=== PATIENT | female | born 1945 | race Caucasian/White ===

== ENCOUNTER 2017-11-07 13:31 | Outpatient (CLI) | payer MEDICARE, OTHER | END 2017-11-07 13:32 | disposition home or self-care (01) | LOC: BICMAMMO 13:31 | PROVIDERS: ATTEND Obstetrics & Gynecology | DX: Z12.31 Encounter for screening mammogram for malignant neoplasm of breast (principal); Z80.3 Family history of malignant neoplasm of breast | CPT/HCPCS: 77063; 77067 ==

== ENCOUNTER 2018-11-10 11:51 | Outpatient (CLI) | payer MEDICARE, OTHER ==
--- NOTE | 2018-11-10 14:04 | MMO ---
Bilateral MAMMO Bilat Screen [facility]. CLINICAL HISTORY: Patient is 73 years old and is seen for screening. The patient has the following family history of breast cancer: maternal grandmother; maternal aunt and 2 cousin females. The patient has no personal history of cancer. VIEWS: The views performed were: bilateral craniocaudal with tomosynthesis and bilateral mediolateral oblique with tomosynthesis. FILMS COMPARED: The present examination has been compared to prior imaging studies performed at [facility] on 10/20/2014, 10/31/2015, 10/31/2016 and 11/07/2017. MAMMOGRAM FINDINGS: There are stable benign appearing calcifications seen in both breasts. There are no suspicious masses, suspicious calcifications, or new areas of architectural distortion. IMPRESSION: THERE IS NO MAMMOGRAPHIC EVIDENCE OF MALIGNANCY. A ROUTINE FOLLOW-UP MAMMOGRAM IN 1 YEAR IS RECOMMENDED. THE RESULTS OF THIS EXAM WERE SENT TO THE PATIENT. ACR BI-RADS Category 2 - Benign finding MAMMOGRAPHY NOTE: 1. A negative mammogram report should not delay a biopsy if a dominant of clinically suspicious mass is present. 2. Approximately 10% to 15% of breast cancers are not detected by mammography. 3. Adenosis and dense breasts may obscure an underlying neoplasm.
== END 2018-11-10 11:52 | disposition home or self-care (01) ==
LOC: BICMAMMO 11:51
PROVIDERS: ATTEND Obstetrics & Gynecology
DX: Z12.31 Encounter for screening mammogram for malignant neoplasm of breast (principal); Z80.3 Family history of malignant neoplasm of breast
CPT/HCPCS: 77063; 77067

== ENCOUNTER 2019-01-21 14:37 | Outpatient (CLI) | payer MEDICARE, OTHER ==
--- NOTE | 2019-01-21 15:09 | RAD ---
PA AND LATERAL VIEWS CHEST: Date: 01/21/19 HISTORY: Cough. FINDINGS: Heart size normal. Lungs are expanded without focal areas of consolidation, pneumothoraces, or pleura l effusions. No acute osseous abnormalities seen. IMPRESSION: No radiographic evidence of acute cardiopulmonary process. POS: C
== END 2019-01-21 14:38 | disposition home or self-care (01) ==
LOC: BICRAD 14:37
PROVIDERS: ATTEND Internal Medicine
DX: R05 Cough (principal)
CPT/HCPCS: 71046

== ENCOUNTER 2019-06-11 17:14 | Outpatient (CLI) | payer MEDICARE, OTHER ==
--- NOTE | 2019-06-11 17:37 | RAD ---
Exam:2 views left knee HISTORY: Pain, x3 weeks COMPARISON: None FINDINGS: No joint effusion. No fracture. No malalignment. Preserved joint spaces. IMPRESSION: Unremarkable left knee to the
== END 2019-06-11 17:15 | disposition home or self-care (01) ==
LOC: SCSRAD 17:14
PROVIDERS: ATTEND Physical Medicine & Rehabilitation
DX: M25.562 Pain in left knee (principal)

== ENCOUNTER 2019-07-20 14:03 | Outpatient (CLI) | payer MEDICARE, OTHER ==
--- NOTE | 2019-07-20 15:58 | MRI ---
EXAM: Left knee MRI without contrast: HISTORY: Left knee pain COMPARISON: None FINDINGS: Multiplanar, multisequence MRI examination of the knees performed. There is evidence for knee joint effusion with a moderate to large popliteal fossa cyst with some ext ension caudally along the medial aspect of the medial gastrocnemius. In addition there is some intramuscular abnormal fluid density within the upper medial gastrocnemius muscle extending approxima tely 5.4 cm craniocaudally into the muscle and approximately 0.6 x 1.9 cm in AP and transverse dimensions probably a second area of intramuscular fluid collection from the somewhat distended popli teal fossa cyst. There is some lateral compartment cartilage loss as well as some chondromalacia patella changes with near full-thickness fissure in the central patellar facet region. Medial meniscus: Complex tear of the medial meniscus from the posterior root into the posterior horn and posterior body junction region including a flap component. Lateral meniscus: Oblique tear of the posterior horn and posterior body junction region of the latera l meniscus evidence for small flap-type tear. Anterior cruciate ligament:Intact. Posterior cruciate ligament: Intact. Medial collateral ligament complex: Intact. Lateral collateral ligament complex: Intact. Quadriceps and patellar tendons: Intact. Extensor mechanism: Unremarkable. Small focus of subchondral marrow signal involving the medial tibial plateau probably a small focus o f stress related change. Several small subchondral cystic foci of the posterior medial femoral condyle. IMPRESSION: Medial and lateral meniscal tears. Joint effusion with prominent popliteal fossa cyst extending caudally with some fluid extension outsi de of the cyst along the posterior medial aspect of the medial gastrocnemius muscle as well as some intramuscular fluid density extending caudally from the knee joint level as well, evidence for prior rupture. Small focus of minimal subchondral marrow signal involving the proximal medial tibial subchondral reg ion probably a small focus of stress related change
== END 2019-07-20 14:04 | disposition home or self-care (01) ==
LOC: BICMRI 14:03
PROVIDERS: ATTEND Physical Medicine & Rehabilitation
DX: M25.562 Pain in left knee (principal); S83.242A Other tear of medial meniscus, current injury, left knee, initial encounter; S83.282A Other tear of lateral meniscus, current injury, left knee, initial encounter; R93.7 Abnormal findings on diagnostic imaging of other parts of musculoskeletal system; M71.22 Synovial cyst of popliteal space [Baker], left knee

== ENCOUNTER 2019-10-07 13:38 | Outpatient (CLI) | payer MEDICARE, OTHER ==
--- NOTE | 2019-10-07 14:58 | MRI ---
EXAM: MRI of right hip PROVIDED CLINICAL HISTORY: Pain COMPARISON: None FINDINGS: There is conspicuous asymmetric fluid signal intensity involving the undersurface fibers of the commo n hamstring tendon origin, compatible with partial thickness tearing. The left hip flexor, abductor and adductor tendons appear intact. The acetabular labrum and femoral-acetabular articular cartilage are suboptimally evaluated in the ab sence of joint distention but appear grossly normal. The amount of fluid within the right hip joint appears physiologic. No focal concerning regional marrow or muscular signal abnormality apparent. The courses of the regional major neurovascular structures appear unremarkable. IMPRESSION: Moderate grade partial thickness tearing involving the common hamstring tendon origin.
== END 2019-10-07 13:39 | disposition home or self-care (01) ==
LOC: BICMRI 13:38
PROVIDERS: ATTEND Orthopaedic Surgery Sports Medicine
DX: M25.551 Pain in right hip (principal); S76.011A Strain of muscle, fascia and tendon of right hip, initial encounter

== ENCOUNTER 2019-11-13 10:58 | Outpatient (CLI) | payer MEDICARE, OTHER ==
--- NOTE | 2019-11-13 11:39 | MMO ---
Bilateral MAMMO Bilat Screen [facility]. CLINICAL HISTORY: Patient is 74 years old and is seen for screening. The patient has the following family history of breast cancer: maternal grandmother; maternal aunt and 2 cousin females. The patient has no personal history of cancer. VIEWS: The views performed were: bilateral craniocaudal with tomosynthesis; bilateral mediolateral oblique with tomosynthesis; and bilateral exaggerated craniocaudal. FILMS COMPARED: The present examination has been compared to prior imaging studies performed at [facility] on 10/31/2015, 10/31/2016, 11/07/2017 and 11/10/2018. This study has been interpreted with the assistance of computer-aided detection. MAMMOGRAM FINDINGS: There are scattered fibroglandular densities. There are stable benign appearing calcifications seen in both breasts. There are no suspicious masses, suspicious calcifications, or new areas of architectural distortion. IMPRESSION: THERE IS NO MAMMOGRAPHIC EVIDENCE OF MALIGNANCY. A ROUTINE FOLLOW-UP MAMMOGRAM IN 1 YEAR IS RECOMMENDED. THE RESULTS OF THIS EXAM WERE SENT TO THE PATIENT. ACR BI-RADS Category 2 - Benign finding MAMMOGRAPHY NOTE: 1. A negative mammogram report should not delay a biopsy if a dominant of clinically suspicious mass is present. 2. Approximately 10% to 15% of breast cancers are not detected by mammography. 3. Adenosis and dense breasts may obscure an underlying neoplasm. Reported by: NOEMI CARRASCO MD Electonically Signed: [id number]
== END 2019-11-13 10:59 | disposition home or self-care (01) ==
LOC: BICMAMMO 10:58
PROVIDERS: ATTEND Obstetrics & Gynecology
DX: Z12.31 Encounter for screening mammogram for malignant neoplasm of breast (principal); Z80.3 Family history of malignant neoplasm of breast
CPT/HCPCS: 77063; 77067

== ENCOUNTER 2020-08-10 07:18 | Outpatient (CLI) | payer MEDICARE, OTHER ==
[2020-08-10] MEDS ORDERED: ADENOSINE 60 MG/20 ML VIAL ONE (08:38)
== END 2020-08-10 07:19 | disposition home or self-care (01) ==
LOC: NM 07:18
PROVIDERS: ATTEND Internal Medicine
DX: R07.9 Chest pain, unspecified (principal)
CPT/HCPCS: 78452; 93017; A9500; J0153

== ENCOUNTER 2020-11-14 10:57 | Outpatient (CLI) | payer MEDICARE, OTHER | END 2020-11-14 10:58 | disposition home or self-care (01) | LOC: BICMAMMO 10:57 | PROVIDERS: ATTEND Obstetrics & Gynecology | DX: Z12.31 Encounter for screening mammogram for malignant neoplasm of breast (principal); Z80.3 Family history of malignant neoplasm of breast | CPT/HCPCS: 77063; 77067 ==

== ENCOUNTER 2020-11-17 11:02 | Day surgery (SDC) | payer MEDICARE, OTHER | END 2020-11-17 14:08 | disposition home or self-care (01) | LOC: SDC 11:02 | PROVIDERS: ATTEND Internal Medicine Critical Care Medicine | PROC: 0BJQ3ZZ Inspection of Pleura, Percutaneous Approach (ICD-10-PCS; principal; 2020-11-17) | DX: J90 Pleural effusion, not elsewhere classified (principal); J94.2 Hemothorax | CPT/HCPCS: 32554; J1642 ==

== ENCOUNTER 2020-12-08 10:13 | Outpatient (CLI) | payer MEDICARE ==
[2020-12-08 12:04] LABS: Hemoglobin 12.8 g/dL (12.0-15.5); Mean Corpuscular HGB CONC 32.7 g/dL (32.0-36.0); Mean Corpuscular Hemoglobin 30.3 pg (27.0-33.0); Mean Corpuscular Volume 92.4 fl (81.6-98.3); Mean Platelet Volume 9.9 fl (7.4-10.4); Platelet Count 253 10x3/uL (150-450); RBC Distribution Width 13.2 % (11.5-14.5); Red Blood Cell (RBC) Count 4.23 10x6/uL (3.90-5.03); White Blood Cell (WBC) Count 6.9 10x3/uL (3.5-10.5)
[2020-12-08 12:27] LABS: Anion Gap 11 mmol/L (10-20); BUN (Urea Nitrogen) 14 mg/dL (9.8-20.1); Calc. Creatinine Clearance 0 mL/min (70-130); Calcium 10.6 mg/dL (7.8-10.44); Carbon Dioxide 27 mmol/L (23-31); Chloride 103 mmol/L (98-107); Glucose 83 mg/dL (83-110); Potassium 4.4 mmol/L (3.5-5.1); Sodium 137 mmol/L (136-145)
== END 2020-12-08 10:14 | disposition home or self-care (01) ==
LOC: LABBT 10:13
PROVIDERS: ATTEND Thoracic Surgery (Cardiothoracic Vascular Surgery)
DX: Z01.818 Encounter for other preprocedural examination (principal); J90 Pleural effusion, not elsewhere classified
CPT/HCPCS: 80048; 85027; 93005; 93010

== ENCOUNTER 2020-12-09 05:57 | Day surgery (SDC) | payer MEDICARE ==
[2020-12-08 14:38] VITALS: BMI 27.8
[2020-12-09] MEDS ORDERED: Bupivacaine PF 0.5% 30 ML VIAL ONE (06:36)
[2020-12-09] MEDS ORDERED: EPINEPHrine 1 MG/ML AMP ONE (06:36)
[2020-12-09] MEDS ORDERED: Fentanyl 100 MCG/2 ML VIAL ONE ×4 (06:52→11:38)
[2020-12-09] MEDS ORDERED: Glycopyrrolate 0.2 MG/ML 5 ML SYRINGE ONE (07:44)
[2020-12-09] MEDS ORDERED: Ondansetron PF 4 MG/2 ML Vial ONE (07:44)
[2020-12-09] MEDS ORDERED: Lidocaine 1% PF 5 ML VIAL ONE (07:44)
[2020-12-09] MEDS ORDERED: Dexamethasone 20 MG/5 ML VIAL ONE (07:44)
[2020-12-09] MEDS ORDERED: Rocuronium Bromide 10 MG/ML (10ML VIAL) ONE (07:44)
[2020-12-09] MEDS ORDERED: PROPOFOL 200 MG/20 ML VIAL ONE (07:44)
[2020-12-09 09:54] LABS: RBC Count-Automated (BF) 130 /cu.mm; WBC/Nucleated-Auto (BF) 330 uL
[2020-12-09 10:13] LABS: BF Color Yellow; Body Fluid Source Pleural Fluid; Clarity Hazy (Clear); Tube # EDTA
[2020-12-09 10:19] LABS: Cell Count Non Hematic 85 %; Eosinophils 1 %; Lymphocytes 14 %
[2020-12-09] MEDS ORDERED: Acetaminophen 325 MG TAB ONE (14:29)
[2020-12-09] MEDS ORDERED: Fentanyl 100 MCG/2 ML VIAL SLOW IVP PRN (15:46)
[2020-12-09] MEDS ORDERED: Zolpidem Tartrate 5 MG TAB PO PRN (15:46)
[2020-12-09] MEDS ORDERED: Ondansetron PF 4 MG/2 ML Vial IVP PRN (15:46)
[2020-12-09] MEDS ORDERED: HYDROcodone/Acetaminophen 5/325 mg Tablet PO PRN ×2 (15:46)
[2020-12-09] MEDS ORDERED: Acetaminophen 325 MG TAB PO PRN (15:46)
[2020-12-09] MEDS ORDERED: HYDROcodone/Acetaminophen 5/325 mg Tablet ONE (16:51)
[2020-12-09] MEDS ORDERED: Artificial Tear Sol 15 ML BOT EA EYE PRN (17:02)
[2020-12-09] MEDS ORDERED: guaiFENesin ER 600 MG TAB PO SCH (21:00)
[2020-12-10] MEDS ORDERED: Levothyroxine Sodium 88 MCG TAB PO SCH (06:00)
[2020-12-10] MEDS ORDERED: Loratadine 10 MG TAB PO SCH (09:00)
== END 2020-12-09 17:50 | disposition home or self-care (01) ==
LOC: SDC 05:57
PROVIDERS: ATTEND Thoracic Surgery (Cardiothoracic Vascular Surgery)
PROC: 0BBP4ZX Excision of Left Pleura, Percutaneous Endoscopic Approach, Diagnostic (ICD-10-PCS; principal; 2020-12-09)
PROC: 0W9B30Z Drainage of Left Pleural Cavity with Drainage Device, Percutaneous Approach (ICD-10-PCS; 2020-12-09)
DX: C45.0 Mesothelioma of pleura (principal); J90 Pleural effusion, not elsewhere classified; E03.9 Hypothyroidism, unspecified; Z79.2 Long term (current) use of antibiotics; Z79.899 Other long term (current) drug therapy; Z88.1 Allergy status to other antibiotic agents; Z01.818 Encounter for other preprocedural examination
CPT/HCPCS: 32550; 32609; 80048; 82150; 83615; 84157; 85027; 86850; 86900; 86901; 86920 ×2; 88325; 89051; 93005; C1729; 71045; 85060; 88112; 88184; 88305; 88313; 88331; 88341; 88342; 93010; J0171; J0690; J1100; J2405; J2704; J3010; S0020

== ENCOUNTER 2021-04-26 15:05 | Outpatient (CLI) | payer MEDICARE | END 2021-04-26 15:06 | disposition home or self-care (01) | LOC: RAD 15:05 | PROVIDERS: ATTEND Internal Medicine Cardiovascular Disease | DX: C45.9 Mesothelioma, unspecified (principal); J90 Pleural effusion, not elsewhere classified; R91.8 Other nonspecific abnormal finding of lung field; J94.8 Other specified pleural conditions | CPT/HCPCS: 36415; 71046; 80053 ==